=== PATIENT | female | born 1935 | race Caucasian/White ===

== ENCOUNTER 2024-01-21 11:03 | Outpatient (CLI) | payer OTHER ==
[~2024-01-21 11:03] MED LIST: AMLODIPINE BESYL5 MG PO; ANTIVERT25 M1 PO; ASA-EC81 MG PO; CATAFLAM50 MG PO; DIOVAN HCT 320/1 TA1; DIOVAN320 MG; LISINOPRIL-HCTZ1 TA1 PO; NORTUSS-EX LIQ118 ML PO; OSEL75CA PO; ZITHROMAX TRI-500 MG PO; ZOCOR20 MG PO
== END 2024-01-21 11:09 | disposition home or self-care (01) ==
LOC: RAD 11:03
PROVIDERS: ATTEND Internal Medicine
DX: R05.9 Cough, unspecified (principal)

== ENCOUNTER → 2024-02-24 12:02 | Outpatient (CLI) | payer OTHER ==
[2024-02-24 13:38] LABS: URINE APPEARANCE Clear; URINE BILIRRUBIN Negative (NEGATIVE); URINE BLOOD Negative; URINE COLOR Yellow; URINE GLUCOSE Negative (NEGATIVE); URINE LEUKOCYTE Negative; URINE NITRATE Negative; URINE PROTEIN Negative (NEGATIVE)
[2024-02-24 13:38] LABS: HEMATOCRIT 38.3 % (36.0-45.00); HEMOGLOBIN 12.9 g/dL (12.0-15.00); MEAN CELL VOLUME 86.7 fL (80.00-100.00); MEAN CORPUSCULAR HEMOGLOBIN 29.1 pg (27.00-32.0); MEAN CORPUSCULAR HGB CONC 33.6 g/dl (32.0-36.0); PLATELET COUNT 250 K/uL (150-450); RED BLOOD COUNT 4.42 M/uL (4.00-6.00); RED CELL DISTRIBUTION WIDTH 15.4 % (11.5-14.5)
[2024-02-24 13:41] LABS: URINE BACTERIA 2080.1 uL (0.0-1933); URINE EPITHELIAL CELLS 18.5 uL (0.0-38.8); URINE RBC 4.4 uL (0.0-20.8); URINE WBC 24.1 uL (0.0-23.2)
[2024-02-24 14:20] LABS: ALBUMIN 3.4 gm/dL (3.4-5.0); BILIRUBIN TOTAL 0.32 mg/dL (0.3-1.2); CALCIUM 9.2 mg/dL (8.5-10.1); CHOL HDL RATIO 2.9 (0-5.0); CREATININE SERUM 0.61 mg/dL (0.55-1.02); FREE TRIODOTIRONINE 2.24 pg/ml (2.18-3.98); GFR 92.56; GLOBULINA 3.9 G/DL (2.4-3.5); POTASSIUM 4.23 mEq/L (3.5-5.1); T4 TOTAL 7.4 UG/DL (4.8-13.9); TOTAL PROTEIN 7.3 gm/dL (6.4-8.2); TSH 1.03 uIU/mL (0.358-3.74)
[2024-02-24 14:22] LABS: C-REACTIVE PROTEIN 0.57 MG/DL (0.00-0.29)
== END | disposition home or self-care (01) ==
LOC: LAB 12:02
PROVIDERS: ATTEND Internal Medicine
DX: I10 Essential (primary) hypertension (principal); E55.9 Vitamin D deficiency, unspecified; R73.9 Hyperglycemia, unspecified; E78.9 Disorder of lipoprotein metabolism, unspecified; Z12.10 Encounter for screening for malignant neoplasm of intestinal tract, unspecified; E03.9 Hypothyroidism, unspecified; F51.01 Primary insomnia; N39.0 Urinary tract infection, site not specified

== ENCOUNTER 2024-06-08 14:40 | Emergency (ER) | payer OTHER ==
[~2024-06-08] VITALS: Ht 160 cm; Wt 61.7 kg
[2024-06-08] MEDS ORDERED: GENTAMICIN SULFATE 0.15 MG/DR DROPS 5ML OP ONE (16:45)
== END 2024-06-08 16:56 | disposition home or self-care (01) ==
LOC: ER 14:40
DX: H10.9 Unspecified conjunctivitis (principal); I10 Essential (primary) hypertension

== ENCOUNTER 2024-07-23 08:19 | Emergency (ER) | payer OTHER ==
[~2024-07-23] VITALS: Ht 160 cm; Wt 59.0 kg
[2024-07-23] MEDS ORDERED: ALL DAY ALLERGY10 M3 PO (09:14)
[2024-07-23] MEDS ORDERED: CETIRIZINE HCL 5MG/5ML BLIST.PACK PO ONE (09:14)
[2024-07-23] MEDS ORDERED: ALLERGY EYE DRO10 M1 OP (09:14)
[2024-07-23] MEDS ORDERED: CETIRIZINE HCL 5 MG/5 ML ML PO ONE (09:15)
== END 2024-07-23 09:22 | disposition home or self-care (01) ==
LOC: ER 08:19
DX: H10.10 Acute atopic conjunctivitis, unspecified eye (principal); H04.209 Unspecified epiphora, unspecified side; H57.10 Ocular pain, unspecified eye; I10 Essential (primary) hypertension; Z88.6 Allergy status to analgesic agent

== ENCOUNTER 2024-07-27 06:21 | Emergency (ER) | payer OTHER ==
[~2024-07-27] VITALS: Ht 162.6 cm; Wt 68.0 kg
[~2024-07-27 06:21] MED LIST changes: +ALL DAY ALLERGY10 M3 PO; +ALLERGY EYE DRO10 M1 OP
[2024-07-27] MEDS ORDERED: GENTAMICIN SULFA5 ML OP (06:25)
== END 2024-07-27 09:08 | disposition home or self-care (01) ==
LOC: ER 06:21
DX: H10.30 Unspecified acute conjunctivitis, unspecified eye (principal); Z88.6 Allergy status to analgesic agent

== ENCOUNTER 2024-08-27 10:01 | Emergency (ER) | payer OTHER ==
[~2024-08-27] VITALS: Ht 162.6 cm; Wt 63.5 kg
[~2024-08-27 10:01] MED LIST changes: +GENTAMICIN SULFA5 ML OP
[2024-08-27 11:11] LABS: HEMATOCRIT 36.9 % (36.0-45.00); HEMOGLOBIN 12.3 g/dL (12.0-15.00); MEAN CELL VOLUME 87.4 fL (80.00-100.00); MEAN CORPUSCULAR HEMOGLOBIN 29.1 pg (27.00-32.0); MEAN CORPUSCULAR HGB CONC 33.3 g/dl (32.0-36.0); PLATELET COUNT 199 K/uL (150-450); RED BLOOD COUNT 4.22 M/uL (4.00-6.00); RED CELL DISTRIBUTION WIDTH 16.4 % (11.5-14.5)
[2024-08-27 11:24] LABS: CALCIUM 8.8 mg/dL (8.5-10.1); CREATININE SERUM 0.7 mg/dL (0.55-1.02); GFR 78.79; POTASSIUM 3.75 mEq/L (3.5-5.1)
== END 2024-08-27 12:29 | disposition home or self-care (01) ==
LOC: ER 10:01
PROVIDERS: Emergency Medicine
DX: H81.10 Benign paroxysmal vertigo, unspecified ear (principal); J06.9 Acute upper respiratory infection, unspecified; I10 Essential (primary) hypertension; Z88.6 Allergy status to analgesic agent

== ENCOUNTER 2024-10-02 09:44 | Outpatient (CLI) | payer OTHER ==
[2024-10-02 10:30] LABS: PH,URINE 6.5 (5.0-8.0); URINE APPEARANCE Cloudy; URINE BILIRRUBIN Negative (NEGATIVE); URINE COLOR Yellow; URINE GLUCOSE Negative (NEGATIVE); URINE KETONE Trace (NEGATIVE); URINE LEUKOCYTE Large; URINE NITRATE Positive; URINE PROTEIN Trace (NEGATIVE)
[2024-10-02 10:34] LABS: HEMATOCRIT 39.4 % (36.0-45.00); HEMOGLOBIN 13.1 g/dL (12.0-15.00); MEAN CELL VOLUME 86.3 fL (80.00-100.00); MEAN CORPUSCULAR HEMOGLOBIN 28.6 pg (27.00-32.0); MEAN CORPUSCULAR HGB CONC 33.1 g/dl (32.0-36.0); PLATELET COUNT 259 K/uL (150-450); RED BLOOD COUNT 4.57 M/uL (4.00-6.00); RED CELL DISTRIBUTION WIDTH 15.7 % (11.5-14.5)
[2024-10-02 10:34] LABS: URINE EPITHELIAL CELLS 14.3 uL (0.0-38.8); URINE RBC 18.6 uL (0.0-20.8); URINE WBC 1960.1 uL (0.0-23.2)
[2024-10-02 10:37] LABS: URINE BACTERIA > 9821.5 uL (0.0-1933); URINE BLOOD Trace; URINE CAST 0.61 uL (0.0-1.40)
[2024-10-02 11:07] LABS: ERYTHROCYTE SEDIMENTATION RATE 51 mm/hr
[2024-10-02 11:23] LABS: ALBUMIN 3.6 gm/dL (3.4-5.0); BILIRUBIN TOTAL 0.62 mg/dL (0.3-1.2); CALCIUM 9.5 mg/dL (8.5-10.1); CHOL HDL RATIO 2.7 (0-5.0); CREATININE SERUM 0.66 mg/dL (0.55-1.02); FREE TRIODOTIRONINE 2.18 pg/ml (2.18-3.98); GFR 84.32; GLOBULINA 3.8 G/DL (2.4-3.5); POTASSIUM 4.29 mEq/L (3.5-5.1); T4 TOTAL 8.32 UG/DL (4.8-13.9); TOTAL PROTEIN 7.4 gm/dL (6.4-8.2); TSH 1.48 uIU/mL (0.358-3.74)
[2024-10-02 11:31] LABS: C-REACTIVE PROTEIN 1.29 MG/DL (0.00-0.29)
== END 2024-10-02 09:45 | disposition home or self-care (01) ==
LOC: LAB 09:44
PROVIDERS: ATTEND Internal Medicine
DX: E55.9 Vitamin D deficiency, unspecified (principal); I10 Essential (primary) hypertension; R73.9 Hyperglycemia, unspecified; R78.9 Finding of unspecified substance, not normally found in blood; Z12.10 Encounter for screening for malignant neoplasm of intestinal tract, unspecified; E03.9 Hypothyroidism, unspecified; L29.9 Pruritus, unspecified

== ENCOUNTER 2024-10-03 09:37 | Outpatient (CLI) | payer OTHER ==
[2024-10-03 11:44] LABS: ob NEGATIVE (NEGATIVE)
== END 2024-10-03 09:46 | disposition home or self-care (01) ==
LOC: LAB 09:37
PROVIDERS: ATTEND Internal Medicine
DX: E55.9 Vitamin D deficiency, unspecified (principal); I10 Essential (primary) hypertension; R73.9 Hyperglycemia, unspecified; E78.9 Disorder of lipoprotein metabolism, unspecified; Z12.10 Encounter for screening for malignant neoplasm of intestinal tract, unspecified; E03.9 Hypothyroidism, unspecified; F51.01 Primary insomnia; N39.0 Urinary tract infection, site not specified; L29.9 Pruritus, unspecified

== ENCOUNTER 2024-10-12 09:22 | Outpatient (CLI) | payer OTHER | END 2024-10-12 09:23 | disposition home or self-care (01) | LOC: MRI 09:22 | PROVIDERS: ATTEND Internal Medicine | DX: F03.90 Unspecified dementia, unspecified severity, without behavioral disturbance, psychotic disturbance, mood disturbance, and anxiety (principal) | CPT/HCPCS: 70551 ==

== ENCOUNTER 2024-10-15 07:40 | Outpatient (CLI) | payer OTHER | END 2024-10-15 07:55 | disposition home or self-care (01) | LOC: TOM 07:40 | PROVIDERS: ATTEND Internal Medicine | DX: K59.00 Constipation, unspecified (principal) | CPT/HCPCS: 74177; Q9965 ==

== ENCOUNTER 2024-11-11 14:42 | Emergency (ER) | payer OTHER ==
[~2024-11-11] VITALS: Ht 160 cm; Wt 61.2 kg
[2024-11-11] MEDS ORDERED: FAMOtidine 10 MG/ML (4ML VIAL) IV STA (15:36)
[2024-11-11] MEDS ORDERED: LEVALBUTEROL HCL 1.25 MG/3 ML SOLUTION IH STA (15:37)
[2024-11-11] MEDS ORDERED: 0.9 % SODIUM CHLORIDE 1,000 ML IV STA (15:41)
[2024-11-11 16:17] LABS: HEMATOCRIT 43.1 % (36.0-45.00); HEMOGLOBIN 14.1 g/dL (12.0-15.00); MEAN CELL VOLUME 85.3 fL (80.00-100.00); MEAN CORPUSCULAR HGB CONC 32.8 g/dl (32.0-36.0); PLATELET COUNT 187 K/uL (150-450); RED BLOOD COUNT 5.05 M/uL (4.00-6.00); RED CELL DISTRIBUTION WIDTH 16.9 % (11.5-14.5)
[2024-11-11 16:44] LABS: CALCIUM 9.6 mg/dL (8.5-10.1); CREATININE SERUM 0.99 mg/dL (0.55-1.02); GFR 52.81; POTASSIUM 4.6 mEq/L (3.5-5.1)
[2024-11-11] MEDS ORDERED: OSEL75CA PO (19:52)
[2024-11-11] MEDS ORDERED: LEVALBUTER0.31 MG/3 IH (20:00)
[2024-11-11] MEDS ORDERED: BENZONATATE200 M1 PO (20:00)
== END 2024-11-11 23:01 | disposition home or self-care (01) ==
LOC: ER 14:44
PROVIDERS: General Practice
DX: J10.1 Influenza due to other identified influenza virus with other respiratory manifestations (principal); R05.8 Other specified cough; I10 Essential (primary) hypertension; Z88.6 Allergy status to analgesic agent; E78.00 Pure hypercholesterolemia, unspecified; Z20.822 Contact with and (suspected) exposure to COVID-19
CPT/HCPCS: 36415; 71046; 93005; 96365; 96366; 99283; J7030

== ENCOUNTER 2024-11-19 13:00 | Inpatient (IN) | payer OTHER ==
[~2024-11-19] VITALS: Ht 162.6 cm; Wt 65.8 kg
[~2024-11-19 13:00] MED LIST changes: +BENZONATATE200 M1 PO; +LEVALBUTER0.31 MG/3 IH
--- NOTE | 2024-11-19 13:51 | NUR ---
PTE LLEGA A CARRIE DE EMERGENCIAS EN COMPANIA DE EID HIJO. PTE ALERTA Y ORIENTADA X3, SE YASMIN S/V. FAMILIAR DE PTE REFIERE QUE PRESENTA VOMITOS Y DOLOR DE ESPINOZA DESDE HACE UN OBDULIA. SE UBICA A PTE EN ANAMARIA.
[2024-11-19] MEDS ORDERED: ONDANSETRON HCL 2 MG/ML VIAL IV STA (13:57)
[2024-11-19] MEDS ORDERED: 0.9 % SODIUM CHLORIDE 1,000 ML IV SCH (14:00)
[2024-11-19] MEDS ORDERED: ONDANSETRON HCL 2 MG/ML VIAL ONE (14:03)
--- NOTE | 2024-11-19 14:05 | NUR ---
SE LACHO MUESTRA DE LAB, SE CANALIZA Y SE ADMINISTRA MED CORDELIA ORDEN MEDICA
[2024-11-19 14:26] LABS: HEMATOCRIT 38.9 % (36.0-45.00); MEAN CELL VOLUME 83.2 fL (80.00-100.00); MEAN CORPUSCULAR HEMOGLOBIN 27.9 pg (27.00-32.0); MEAN CORPUSCULAR HGB CONC 33.5 g/dl (32.0-36.0); PLATELET COUNT 487 K/uL (150-450); RED BLOOD COUNT 4.67 M/uL (4.00-6.00); RED CELL DISTRIBUTION WIDTH 16.6 % (11.5-14.5)
[2024-11-19 15:04] LABS: CALCIUM 9.3 mg/dL (8.5-10.1); CREATININE SERUM 0.62 mg/dL (0.55-1.02); GFR 90.63; POTASSIUM 3.81 mEq/L (3.5-5.1)
[2024-11-19 17:41] LABS: URINE APPEARANCE Clear; URINE BILIRRUBIN Negative (NEGATIVE); URINE BLOOD Negative; URINE COLOR Yellow; URINE GLUCOSE Negative (NEGATIVE); URINE KETONE 15 (NEGATIVE); URINE LEUKOCYTE Negative; URINE NITRATE Negative; URINE PROTEIN Trace (NEGATIVE); URINE UROBILINOGEN 0.2 E.U./dl
[2024-11-19 17:46] LABS: URINE BACTERIA 102.7 uL (0.0-1933); URINE EPITHELIAL CELLS 3.7 uL (0.0-38.8); URINE RBC 13.5 uL (0.0-20.8); URINE WBC 2.6 uL (0.0-23.2)
[2024-11-19 18:04] LABS: URINE CAST 0.14 uL (0.0-1.40)
--- NOTE | 2024-11-20 07:23 | NUR ---
FEMINA ALERTA Y ORIENTADA X3 EN COMPANIA DE FAMILIAR EN ANAMARIA POSICION MAS BAJA Y BARANDAS ELEVADAS POR SEGURIDAD. CANALIZACION PATENTE KENYA DE EDEMA Y ERITEMA CON IVF'S CORDELIA ORDEN MEDICA. PENDIENTE MUESTRA DE LABORATORIO A LAS [address] YOU.
[2024-11-20] MEDS ORDERED: NITROGLYCERIN IN 5 % DEXTROSE 250 ML IV SCH (10:13)
[2024-11-20] MEDS ORDERED: SIMVASTATIN 20 MG TABLET PO SCH ×2 (10:17→17:00)
[2024-11-20] MEDS ORDERED: ENOXAPARIN SODIUM 60 MG/0.6 ML SYRINGE SUBCUTANEO SCH (10:22)
[2024-11-20] MEDS ORDERED: ENOXAPARIN SODIUM 60 MG/0.6 ML SYRINGE SUBCUTANEO ONE (10:56)
[2024-11-20] MEDS ORDERED: NITROGLYCERIN IN 5 % DEXTROSE 50 MG/250 ML BOTTLE IV ONE (10:56)
[2024-11-20 11:33] LABS: INR 1.06; PARTIAL THROMBOPLASTIN TIME 28.2 SECONDS (22.0-34.0); PROTHROMBIN TIME 11.5 SECONDS (9.0-11.5)
[2024-11-20 11:38] LABS: ABG PH 7.444 (7.35-7.45); ABG pCO2 37.2 mmHg (35-45); BASE EXCESS 1.1 mmol/l; BICARBONATE 24.9 mmol/l (23-25); SaO2 93.1 %
[2024-11-20 11:39] LABS: allen test SATISFACTORY; o2 21 %; puncture site RADIAL LEFT
[2024-11-20 12:26] LABS: CHOL HDL RATIO 3.2 (0-5.0); CKMB 1.1 NG/ML (0.5-3.6)
[2024-11-20] MEDS ORDERED: ATORVASTATIN CALCIUM 40 MG TABLET PO SCH (13:08)
[2024-11-20] MEDS ORDERED: CLOPIDOGREL BISULFATE 75 MG TABLET PO SCH (13:08)
[2024-11-20] MEDS ORDERED: 0.9 % SODIUM CHLORIDE 1,000 ML IV SCH (13:15)
[2024-11-20] MEDS ORDERED: CLOPIDOGREL BISULFATE 75 MG TABLET PO NR (14:30)
[2024-11-20] MEDS ORDERED: FAMOTIDINE/PF 20 MG in 0.9 % SODIUM CHLORIDE 100 ML IV SCH (15:08)
[2024-11-20 15:51] LABS: T4 FREE 1.05 NG/ML (0.76-1.46); TSH 0.721 uIU/mL (0.358-3.74)
[2024-11-20] MEDS ORDERED: METOPROLOL TARTRATE 25 MG TABLET PO SCH (17:00)
[2024-11-20] MEDS ORDERED: LISINOPRIL 5 MG TABLET PO SCH (17:00)
[2024-11-20] MEDS ORDERED: OSELTAMIVIR PHOSPHATE 75 MG CAPSULE PO SCH (17:00)
[2024-11-20 19:17] VITALS: BP 130/72; O2SAT 98
[2024-11-21 01:15] VITALS: BP 148/72; O2SAT 98
[2024-11-21 06:46] LABS: HEMATOCRIT 41.4 % (36.0-45.00); HEMOGLOBIN 14.1 g/dL (12.0-15.00); MEAN CELL VOLUME 83.6 fL (80.00-100.00); MEAN CORPUSCULAR HEMOGLOBIN 28.5 pg (27.00-32.0); MEAN CORPUSCULAR HGB CONC 34.1 g/dl (32.0-36.0); PLATELET COUNT 565 K/uL (150-450); RED BLOOD COUNT 4.95 M/uL (4.00-6.00); RED CELL DISTRIBUTION WIDTH 16.5 % (11.5-14.5)
[2024-11-21 07:38] LABS: CALCIUM 9.4 mg/dL (8.5-10.1); CREATININE SERUM 0.52 mg/dL (0.55-1.02); GFR 111.03; POTASSIUM 4.09 mEq/L (3.5-5.1)
[2024-11-21] MEDS ORDERED: ENOXAPARIN SODIUM 60 MG/0.6 ML SYRINGE SUBCUTANEO SCH ×2 (09:00→21:00)
[2024-11-21] MEDS ORDERED: CLOPIDOGREL BISULFATE 75 MG TABLET PO SCH (09:00)
[2024-11-21 09:04] VITALS: BP 129/76; O2SAT 97
[2024-11-21] MEDS ORDERED: FAMOTIDINE/PF 20 MG/2 ML VIAL ONE (09:39)
[2024-11-21] MEDS ORDERED: ALPRAzolam 0.25 MG TABLET PO SCH (17:00)
[2024-11-21 18:50] VITALS: BP 139/79
[2024-11-22 02:30] VITALS: BP 121/64; O2SAT 100
[2024-11-22] MEDS ORDERED: FAMOTIDINE/PF 20 MG/2 ML VIAL ONE (07:34)
[2024-11-22] MEDS ORDERED: METOPROLOL SUCCINATE 50 MG TAB.SR.24H PO SCH (09:00)
[2024-11-22 09:57] VITALS: BP 122/63; O2SAT 97
[2024-11-22 16:58] VITALS: BP 148/78
[2024-11-23 02:44] VITALS: O2SAT 93
[2024-11-23 06:47] LABS: HEMATOCRIT 39.5 % (36.0-45.00); HEMOGLOBIN 12.9 g/dL (12.0-15.00); MEAN CELL VOLUME 84.7 fL (80.00-100.00); MEAN CORPUSCULAR HEMOGLOBIN 27.7 pg (27.00-32.0); MEAN CORPUSCULAR HGB CONC 32.6 g/dl (32.0-36.0); PLATELET COUNT 466 K/uL (150-450); RED BLOOD COUNT 4.67 M/uL (4.00-6.00); RED CELL DISTRIBUTION WIDTH 16.5 % (11.5-14.5)
[2024-11-23] MEDS ORDERED: FAMOTIDINE/PF 20 MG/2 ML VIAL ONE (07:43)
[2024-11-23 09:01] VITALS: BP 140/80
== END 2024-11-23 13:12 | disposition home or self-care (01) | DRG 281 ==
LOC: ER 13:00 → SEC-K 11-20 10:50 → MEDJ 11-20 11:33
PROVIDERS: Emergency Medicine; General Practice; Student in an Organized Health Care Education/Training Program; ADMIT Internal Medicine; ATTEND Internal Medicine
PROC: BW28ZZZ Computerized Tomography (CT Scan) of Head (ICD-10-PCS; principal; 2024-11-19)
PROC: B246ZZZ Ultrasonography of Right and Left Heart (ICD-10-PCS; 2024-11-20)
PROC: 4A12X4Z Monitoring of Cardiac Electrical Activity, External Approach (ICD-10-PCS; 2024-11-20)
DX: I21.4 Non-ST elevation (NSTEMI) myocardial infarction (principal); I16.9 Hypertensive crisis, unspecified; I48.91 Unspecified atrial fibrillation; R09.02 Hypoxemia; J11.1 Influenza due to unidentified influenza virus with other respiratory manifestations; E78.49 Other hyperlipidemia

== ENCOUNTER 2025-01-26 09:05 | Emergency (ER) | payer OTHER ==
[~2025-01-26] VITALS: Ht 162.6 cm; Wt 56.7 kg
[2025-01-26] MEDS ORDERED: KETOROLAC TROMETHAMINE 60 MG VIAL IM ONE (11:30)
== END 2025-01-26 11:26 | disposition home or self-care (01) ==
LOC: ER 09:05
DX: M94.0 Chondrocostal junction syndrome [Tietze] (principal); Z88.6 Allergy status to analgesic agent
CPT/HCPCS: 93005; 96372; 99283; J1885

== ENCOUNTER 2025-02-23 13:52 | Inpatient (IN) | payer OTHER ==
[~2025-02-23] VITALS: Ht 162.6 cm; Wt 56.7 kg
[2025-02-23] MEDS ORDERED: MECLIZINE HCL 12.5 MG TABLET PO STA (14:52)
[2025-02-23] MEDS ORDERED: MECLIZINE HCL 12.5 MG TABLET PO ONE (15:11)
[2025-02-23 15:53] LABS: HEMATOCRIT 39.2 % (36.0-45.00); HEMOGLOBIN 13.2 g/dL (12.0-15.00); MEAN CELL VOLUME 86.4 fL (80.00-100.00); MEAN CORPUSCULAR HEMOGLOBIN 29.1 pg (27.00-32.0); MEAN CORPUSCULAR HGB CONC 33.7 g/dl (32.0-36.0); PLATELET COUNT 318 K/uL (150-450); RED BLOOD COUNT 4.54 M/uL (4.00-6.00); RED CELL DISTRIBUTION WIDTH 15.9 % (11.5-14.5)
[2025-02-23 16:29] LABS: CALCIUM 9.6 mg/dL (8.5-10.1); CREATININE SERUM 0.9 mg/dL (0.55-1.02); GFR 58.95; POTASSIUM 3.02 mEq/L (3.5-5.1)
[2025-02-23] MEDS ORDERED: 0.9 % SODIUM CHLORIDE 1,000 ML IV SCH (18:30)
[2025-02-23] MEDS ORDERED: DILTIAZEM HCL 30 MG TABLET PO SCH (18:35)
[2025-02-23] MEDS ORDERED: APIXABAN 2.5 MG TABLET PO SCH (18:35)
[2025-02-23] MEDS ORDERED: FAMOTIDINE/PF 20 MG in 0.9 % SODIUM CHLORIDE 8 ML IV PUSH SCH (18:35)
[2025-02-23] MEDS ORDERED: LOSARTAN POTASSIUM 25 MG TABLET PO SCH (18:35)
[2025-02-23] MEDS ORDERED: ACETAMINOPHEN 500 MG GEL..CAP PO PRN (18:45)
[2025-02-23 20:46] LABS: INR 1.01
[2025-02-23 20:49] LABS: D DIMER 0.67 MG/L; PARTIAL THROMBOPLASTIN TIME 28.5 SECONDS (22.0-34.0)
[2025-02-23 22:23] VITALS: BP 160/78; O2SAT 97
[2025-02-24] VITALS (9 sets, daily range): BP systolic 102–160; BP diastolic 66–86; O2SAT 88–99
[2025-02-24] MEDS ORDERED: DILTIAZEM HCL 120 MG CAP.SR.24H PO SCH (09:00)
[2025-02-25 01:00] VITALS: O2SAT 90
[2025-02-25 02:54] VITALS: BP 134/83; O2SAT 97
[2025-02-25] MEDS ORDERED: CLONAZEPAM 0.5 MG TABLET PO ONE (08:00)
[2025-02-25 08:11] VITALS: BP 132/68; O2SAT 98
[2025-02-25 09:37] VITALS: O2SAT 90
[2025-02-25] MEDS ORDERED: CLONAZEPAM0.5 MG PO (17:12)
[2025-02-25] MEDS ORDERED: DILTIAZEM ER120 M2 PO (17:12)
[2025-02-25 17:40] VITALS: BP 124/66; O2SAT 97
[2025-02-25] MEDS ORDERED: CLONAZEPAM 0.5 MG TABLET PO SCH (21:00)
== END 2025-02-25 17:51 | disposition home or self-care (01) | DRG 282 ==
LOC: ER 13:52 → MEDJ 19:13
PROVIDERS: Emergency Medicine; General Practice; ADMIT Internal Medicine; ATTEND Internal Medicine
PROC: B020ZZZ Computerized Tomography (CT Scan) of Brain (ICD-10-PCS; principal; 2025-02-23)
PROC: B246ZZZ Ultrasonography of Right and Left Heart (ICD-10-PCS; 2025-02-23)
PROC: 4A12X4Z Monitoring of Cardiac Electrical Activity, External Approach (ICD-10-PCS; 2025-02-23)
DX: I21.4 Non-ST elevation (NSTEMI) myocardial infarction (principal); D32.9 Benign neoplasm of meninges, unspecified; I48.91 Unspecified atrial fibrillation; Z91.199 Patient's noncompliance with other medical treatment and regimen due to unspecified reason; F03.90 Unspecified dementia, unspecified severity, without behavioral disturbance, psychotic disturbance, mood disturbance, and anxiety

== ENCOUNTER 2025-03-03 08:54 | Emergency (ER) | payer OTHER ==
[~2025-03-03] VITALS: Ht 165.1 cm; Wt 54.4 kg
[~2025-03-03 08:54] MED LIST changes: +CLONAZEPAM0.5 MG PO; +DILTIAZEM ER120 M2 PO
[2025-03-03 09:49] LABS: HEMATOCRIT 36.6 % (36.0-45.00); HEMOGLOBIN 12.1 g/dL (12.0-15.00); MEAN CELL VOLUME 86.5 fL (80.00-100.00); MEAN CORPUSCULAR HEMOGLOBIN 28.6 pg (27.00-32.0); PLATELET COUNT 304 K/uL (150-450); RED BLOOD COUNT 4.24 M/uL (4.00-6.00); RED CELL DISTRIBUTION WIDTH 15.9 % (11.5-14.5)
[2025-03-03 10:13] LABS: CALCIUM 10.4 mg/dL (8.5-10.1); CREATININE SERUM 0.94 mg/dL (0.55-1.02); GFR 56.07; POTASSIUM 3.85 mEq/L (3.5-5.1)
[2025-03-03 13:52] VITALS: BP 143/73; O2SAT 100
[2025-03-06] MEDS ORDERED: LOSARTAN POTASS25 MG (13:18)
== END 2025-03-03 16:11 | disposition home or self-care (01) ==
LOC: ER 08:54
PROVIDERS: General Practice
DX: R53.83 Other fatigue (principal); R00.2 Palpitations; I10 Essential (primary) hypertension; Z88.6 Allergy status to analgesic agent

== ENCOUNTER → 2025-03-06 | Emergency (ER) | payer OTHER ==
[~2025-03-06] VITALS: Ht 152.4 cm; Wt 59.0 kg
[~2025-03-06] MED LIST changes: +LOSARTAN POTASS25 MG
[2025-03-06 13:28] VITALS: BP 107/64; O2SAT 97
== END | disposition left against medical advice (07) ==
LOC: ER 12:58
DX: Z53.21 Procedure and treatment not carried out due to patient leaving prior to being seen by health care provider (principal)